=== PATIENT | male | born 1985 | race Two or more races ===

== ENCOUNTER 2019-05-28 08:47 | Emergency (ER) | payer SELFPAY ==
[~2019-05-28] VITALS: Ht 175.3 cm; Wt 98.9 kg
[2019-05-28] MEDS ORDERED: ONDANSETRON PF 4 MG/2 ML VIAL. IVP ONE (09:30)
[2019-05-28] MEDS ORDERED: IV NORMAL SALINE 1000ML BAG 1,000 ML IV ONE (09:30)
[2019-05-28] MEDS ORDERED: DICYCLOMINE HCL 10 MG CAPSULE PO ONE (09:30)
[2019-05-28] MEDS ORDERED: FAMOTIDINE 20 MG/2 ML VIAL IVP ONE (09:30)
[2019-05-28 09:43] LABS: BASO % 0 % (0-3); EOS # 0.2 x10^3/uL (0.0-0.7); EOS % 1 % (0-3); HEMATOCRIT 45.8 % (39.0-53.0); HEMOGLOBIN 15.9 g/dL (13.0-17.5); LYMPH # 0.6 x10^3/uL (1.0-4.8); LYMPH % 5 % (24-48); MEAN CORPUSCULAR HEMOGLOBIN 32 pg (25-35); MEAN CORPUSCULAR HGB CONC 35 g/dL (31-37); MEAN CORPUSCULAR VOLUME 92 fL (79-100); MONO # 0.7 x10^3/uL (0.0-1.1); MONO % 6 % (0-9); NEUT # 10.7 x10^3/uL (1.8-7.7); NEUT % 88 % (31-73); PLATELET COUNT 239 x10^3/uL (140-400); RED CELL DISTRIBUTION WIDTH 12.4 % (11.5-14.5); WHITE BLOOD COUNT 12.2 x10^3/uL (4.0-11.0)
--- NOTE | 2019-05-28 09:57 | PHYS DOC ---
Past Medical History Past Medical History: No Pertinent History Past Surgical History: No Surgical History Alcohol Use: None Drug Use: None Adult General Chief Complaint Chief Complaint: NAUSEA/VOMITING/DIARRHA HPI HPI Patient is a 34 year old male who presents to the ED today complaining of nausea vomiting and diarrhea for 2 days. Patient is also complaining of slight bilateral upper abdominal pain worse on deep breaths and coughing for 2 days. Patient denies any fever. Denies any hematemesis or melena. Denies any relieving factors to his pain. Review of Systems Review of Systems Constitutional: Denies fever or chills [] Eyes: Denies change in visual acuity, redness, or eye pain [] HENT: Denies nasal congestion or sore throat [] Respiratory: Denies cough or shortness of breath [] Cardiovascular: No additional information not addressed in HPI [] GI: Reports abdominal pain with nausea vomiting and diarrhea, denies any hematemesis : Denies dysuria or hematuria [] Musculoskeletal: Denies back pain or joint pain [] Integument: Denies rash or skin lesions [] Neurologic: Denies headache, focal weakness or sensory changes [] All other systems were reviewed and found to be within normal limits, except as documented in this note. Current Medications Current Medications Current Medications Medications (Trade) Dose Ordered Sig/Loyd Start Time Stop Time Status Last Admin Dose Admin Dicyclomine HCl (Bentyl) 20 mg 1X ONCE 05/28/19 09:30 05/28/19 09:35 DC 05/28/19 09:41 20 MG Famotidine (Pepcid Vial) 20 mg 1X ONCE 05/28/19 09:30 05/28/19 09:35 DC 05/28/19 09:40 20 MG Ondansetron HCl (Zofran) 4 mg 1X ONCE 05/28/19 09:30 05/28/19 09:35 DC 05/28/19 09:40 4 MG Sodium Chloride 1,000 ml @ 1,000 mls/hr 1X ONCE 05/28/19 09:30 05/28/19 10:29 DC 05/28/19 09:41 1,000 MLS/HR Allergies Allergies Allergies Coded Allergies Type Severity Reaction Last Updated Verified No Known Drug Allergies 05/28/19 No Physical Exam Physical Exam Constitutional: Well developed, well nourished, no acute distress, non-toxic appearance. [] HENT: Normocephalic, atraumatic, bilateral external ears normal, oropharynx moist, no oral exudates, nose normal. [] Eyes: PERRLA, EOMI, conjunctiva normal, no discharge. [] Neck: Normal range of motion, no tenderness, supple, no stridor. [] Cardiovascular:Heart rate regular rhythm, no murmur [] Lungs & Thorax: Bilateral breath sounds clear to auscultation [] Abdomen: Bowel sounds normal, soft, diffuse tenderness to bilateral upper abdomen with negative Walker sign, no right lower quadrant tenderness. No masses, no pulsatile masses. [] Skin: Warm, dry, no erythema, no rash. [] Back: No tenderness, no CVA tenderness. [] Extremities: No tenderness, no cyanosis, no clubbing, ROM intact, no edema. [] Neurologic: Alert and oriented X 3, normal motor function, normal sensory function, no focal deficits noted. [] Psychologic: Affect normal, judgement normal, mood normal. [] Current Patient Data Vital Signs Vital Signs Date Time Temp Pulse Resp B/P (MAP) Pulse Ox O2 Delivery O2 Flow Rate FiO2 05/28/19 10:16 94 118/60 (79) 94 Room Air 05/28/19 09:05 98.3 20 98.3 Lab Values Laboratory Tests Test 05/28/19 09:05 05/28/19 09:30 05/28/19 09:35 Urine Collection Type Unknown Urine Color Yellow Urine Clarity Clear Urine pH 6.5 Urine Specific [place] >=1.030 Urine Protein 30 mg/dL (NEG-TRACE) Urine Glucose (UA) Negative mg/dL (NEG) Urine Ketones (Stick) Negative mg/dL (NEG) Urine Blood Negative (NEG) Urine Nitrite Negative (NEG) Urine Bilirubin Negative (NEG) Urine Urobilinogen Dipstick 0.2 mg/dL (0.2 mg/dL) Urine Leukocyte Esterase Negative (NEG) Urine RBC 0 /HPF (0-2) Urine WBC Occ /HPF (0-4) Urine Squamous Epithelial Cells Few /LPF Urine Bacteria 0 /HPF (0-FEW) Urine Mucus Mod /LPF Urine Opiates Screen Neg (NEG) Urine Methadone Screen Neg (NEG) Urine Barbiturates Neg (NEG) Urine Phencyclidine Screen Neg (NEG) Urine Amphetamine/Methamphetamine Pos (NEG) Urine Benzodiazepines Screen Neg (NEG) Urine Cocaine Screen Neg (NEG) Urine Cannabinoids Screen Pos (NEG) Urine Ethyl Alcohol Neg (NEG) White Blood Count 12.2 x10^3/uL (4.0-11.0) H Red Blood Count 5.00 x10^6/uL (4.30-5.70) Hemoglobin 15.9 g/dL (13.0-17.5) Hematocrit 45.8 % (39.0-53.0) Mean Corpuscular Volume 92 fL (79-100) Mean Corpuscular Hemoglobin 32 pg (25-35) Mean Corpuscular Hemoglobin Concent 35 g/dL (31-37) Red Cell Distribution Width 12.4 % (11.5-14.5) Platelet Count 239 x10^3/uL (140-400) Neutrophils (%) (Auto) 88 % (31-73) H Lymphocytes (%) (Auto) 5 % (24-48) L Monocytes (%) (Auto) 6 % (0-9) Eosinophils (%) (Auto) 1 % (0-3) Basophils (%) (Auto) 0 % (0-3) Neutrophils # (Auto) 10.7 x10^3/uL (1.8-7.7) H Lymphocytes # (Auto) 0.6 x10^3/uL (1.0-4.8) L Monocytes # (Auto) 0.7 x10^3/uL (0.0-1.1) Eosinophils # (Auto) 0.2 x10^3/uL (0.0-0.7) Basophils # (Auto) 0.0 x10^3/uL (0.0-0.2) Platelet Estimate Pending Sodium Level 139 mmol/L (136-145) Potassium Level 3.8 mmol/L (3.5-5.1) Chloride Level 99 mmol/L (98-107) Carbon Dioxide Level 27 mmol/L (21-32) Anion Gap 13 (6-14) Blood Urea Nitrogen 22 mg/dL (8-26) Creatinine 0.9 mg/dL (0.7-1.3) Estimated GFR (Cockcroft-Gault) 97.8 BUN/Creatinine Ratio 24 (6-20) H Glucose Level 112 mg/dL (70-99) H Calcium Level 8.9 mg/dL (8.5-10.1) Total Bilirubin 0.7 mg/dL (0.2-1.0) Aspartate Amino Transferase (AST) 16 U/L (15-37) Alanine Aminotransferase (ALT) 22 U/L (16-63) Alkaline Phosphatase 81 U/L (46-116) Total Protein 8.6 g/dL (6.4-8.2) H Albumin 4.3 g/dL (3.4-5.0) Albumin/Globulin Ratio 1.0 (1.0-1.7) Lipase 46 U/L (73-393) L Ethyl Alcohol Level < 10 mg/dL (0-10) Influenza Type A Antigen Negative (NEGATIVE) Influenza Type B Antigen Negative (NEGATIVE) Laboratory Tests 05/28/19 09:30 Laboratory Tests 05/28/19 09:30 EKG EKG [] Radiology/Procedures Radiology/Procedures []PROCEDURE: ABDOMEN COMPLETE ABDOMEN COMPLETE History: Upper abdominal pain. Comparison: None. Technique: Sonographic examination of the abdomen was performed and multiple grayscale and color Doppler static images were obtained. Findings: Liver demonstrates normal echogenicity. The liver measures 17.9 cm. Portal flow is patent Common bile duct measures 3.6 mm in diameter. No cholelithiasis. Comment appears mildly contracted. Mild gallbladder wall thickening measures 4.8 mm. No pericholecystic fluid. Visualized pancreas is not well seen due to overlying bowel gas.. The right kidney measures 10.8 x 5.7 x 5.1 cm. No hydronephrosis. The left kidney measures 11.4 x 4.9 x 5.6 cm. No hydronephrosis. The spleen measures 12.5 cm. Aorta and IVC not well seen due to overlying bowel gas. IMPRESSION: 1. Mildly thickened gallbladder wall, may relate to mild gallbladder contraction. No cholelithiasis. If persistent concern for gallbladder function, HIDA scan can better evaluate. Electronically signed by: Benito Hernandez DO (05/28/2019 10:49 AM) [id number] DICTATED and SIGNED BY: BENITO HERNANDEZ DO DATE: 05/28/19 1049 Course & Med Decision Making Course & Med Decision Making Pertinent Labs and Imaging studies reviewed. (See chart for details) This is a 34-year-old male patient presenting to the ED today with nausea vomiting and diarrhea that began 2 days ago. Negative influenza A or B. CBC with a WBC of 12.2, CMP would not acute findings, drug screen noted for methamphetamine use and marijuana use. Abdominal ultrasound negative for any acute findings. Patient was discharged to home. Instructed to push fluids, maintain good hygiene. Prescription for Zofran and dicyclomine provided. Dragon Disclaimer Dragon Disclaimer This electronic medical record was generated, in whole or in part, using a voice recognition dictation system. Departure Departure Impression: Primary Impression: Nausea vomiting and diarrhea Additional Impressions: Methamphetamine use Marijuana use Disposition: HOME, SELF-CARE Condition: STABLE Referrals: NO PCP (PCP) NORBERTO MEJÍA MD follow up in 1 week Patient Instructions: Diarrhea, Nausea and Vomiting Additional Instructions: You were evaluated in the emergency room for nausea vomiting and diarrhea. Push fluids, maintain good. Take the prescribed medications as ordered. Please follow-up with your own doctor in the next 1-2 weeks. Scripts Ondansetron Hcl (ZOFRAN) 4 Mg Tablet 1 TAB PO Q6HRS, #20 TAB Prov: HARI OLSON APRN 05/28/19 Dicyclomine Hcl (DICYCLOMINE HCL) 20 Mg Tablet 1 TAB PO TID, #30 TAB 1 Refill Prov: HARI OLSON APRN 05/28/19 Problem Qualifiers HARI OLSON APRN May 28, 2019 09:57
[2019-05-28 10:00] LABS: BILIRUBIN,URINE NEGATIVE (NEG); CLARITY,URINE CLEAR; COLOR,URINE YELLOW; NITRITE,URINE NEGATIVE (NEG); PH,URINE 6.5; PROTEIN,URINE 30 mg/dL (NEG-TRACE); UROBILINOGEN,URINE 0.2 mg/dL (0.2 mg/dL)
[2019-05-28 10:01] LABS: CALCIUM 8.9 mg/dL (8.5-10.1); CREATININE 0.9 mg/dL (0.7-1.3); GFR 97.8; POTASSIUM 3.8 mmol/L (3.5-5.1)
[2019-05-28 10:07] LABS: ALBUMIN 4.3 g/dL (3.4-5.0); TOTAL BILIRUBIN 0.7 mg/dL (0.2-1.0); TOTAL PROTEIN 8.6 g/dL (6.4-8.2)
[2019-05-28 10:09] LABS: BARBITURATES NEG (NEG); BENZODIAZEPINES NEG (NEG); CANNABINOIDS POS (NEG); COCAINE NEG (NEG); METHADONE NEG (NEG); OPIATES NEG (NEG); PHENCYCLIDINE NEG (NEG)
[2019-05-28 10:12] LABS: AMPHETAMINE/METHAMPHETAMINE POS (NEG)
[2019-05-28 10:14] LABS: RBC,URINE 0 /HPF (0-2)
[2019-05-28 10:15] LABS: BACTERIA,URINE 0 /HPF (0-FEW); SQUAMOUS EPITHELIAL CELL,UR FEW /LPF; WBC,URINE OCC /HPF (0-4)
[2019-05-28 10:19] LABS: INFLUENZA A PATIENT NEGATIVE (NEGATIVE); INFLUENZA B PATIENT NEGATIVE (NEGATIVE)
--- NOTE | 2019-05-28 10:52 | RAD ---
ABDOMEN COMPLETE History: Upper abdominal pain. Comparison: None. Technique: Sonographic examination of the abdomen was performed and multiple grayscale and color Doppler static images were obtained. Findings: Liver demonstrates normal echogenicity. The liver measures 17.9 cm. Portal flow is patent Common bile duct measures 3.6 mm in diameter. No cholelithiasis. Comment appears mildly contracted. Mild gallbladder wall thickening measures 4.8 mm. No pericholecystic fluid. Visualized pancreas is not well seen due to overlying bowel gas.. The right kidney measures 10.8 x 5.7 x 5.1 cm. No hydronephrosis. The left kidney measures 11.4 x 4.9 x 5.6 cm. No hydronephrosis. The spleen measures 12.5 cm. Aorta and IVC not well seen due to overlying bowel gas. IMPRESSION: 1. Mildly thickened gallbladder wall, may relate to mild gallbladder contraction. No cholelithiasis. If persistent concern for gallbladder function, HIDA scan can better evaluate. Electronically signed by: Benito Hernandez DO (05/28/2019 10:49 AM) [id number]
[2019-05-28] MEDS ORDERED: DICY20TA3 PO (11:04)
[2019-05-28] MEDS ORDERED: ONDA4TAB7 PO (11:04)
[2019-05-28 11:15] VITALS: BP 116/70
[2019-05-28 11:28] LABS: % ATYL 1 % (0-0); % BANDS 9 % (0-9); % LYMPHS 7 % (24-48); % SEGS 83 % (35-66); PLT ESTIMATE ADEQUATE (ADEQUATE)
== END 2019-05-28 11:20 | disposition home or self-care (01) ==
LOC: ER 08:47
DX: R11.2 Nausea with vomiting, unspecified (principal); R19.7 Diarrhea, unspecified; R10.12 Left upper quadrant pain; F15.90 Other stimulant use, unspecified, uncomplicated; F12.90 Cannabis use, unspecified, uncomplicated
CPT/HCPCS: 36415; 76700; 80053; 80307; 81001; 83690; 85007; 85025; 87804; 96361; 96374; 96375; 99285; G0480; J2405; J3490; J7030